=== PATIENT | male | born 1975 | race Caucasian/White ===

== ENCOUNTER 2019-02-27 15:51 | Emergency (ER) | payer BC, OTHER ==
--- NOTE | 2019-02-27 15:59 | ERPHSYRPT ---
- History of Present Illness Time Seen by Provider: 02/27/19 15:59 Source: patient Exam Limitations: no limitations Physician History: 44 y/o right handed white male presents with left elbow pain after using a sledgehammer while at work this afternoon. the handle broke. pt can move it hurts to do so. Occurred: this afternoon Method of Injury: other (swinging a sledgehammer) Quality: aching Severity of Pain-Max: mild Severity of Pain-Current: mild Extremities Pain Location: elbow: left Modifying Factors: Improves With: movement Associated Symptoms: none Allergies/Adverse Reactions: No Known Drug Allergies Allergy (Verified 02/27/19 16:09) Hx Tetanus, Diphtheria Vaccination/Date Given: Yes Hx Influenza Vaccination/Date Given: No Hx Pneumococcal Vaccination/Date Given: No - Review of Systems Constitutional: No Symptoms Eyes: No Symptoms Ears, Nose, & Throat: No Symptoms Respiratory: No Symptoms Cardiac: No Symptoms Abdominal/Gastrointestinal: No Symptoms Genitourinary Symptoms: No Symptoms Musculoskeletal: Joint Pain (left elbow) Skin: No Symptoms Neurological: No Symptoms Psychological: No Symptoms Endocrine: No Symptoms Hematologic/Lymphatic: No Symptoms Immunological/Allergic: No Symptoms All Other Systems: Reviewed and Negative - Past Medical History Pertinent Past Medical History: Yes Neurological History: No Pertinent History ENT History: No Pertinent History Cardiac History: High Cholesterol Respiratory History: No Pertinent History Endocrine Medical History: No Pertinent History Musculoskeletal History: No Pertinent History GI Medical History: No Pertinent History History: No Pertinent History Psycho-Social History: No Pertinent History Male Reproductive Disorders: No Pertinent History - Past Surgical History Past Surgical History: Yes Neuro Surgical History: No Pertinent History Cardiac: No Pertinent History Respiratory: No Pertinent History Gastrointestinal: No Pertinent History Genitourinary: No Pertinent History Musculoskeletal: Orthopedic Surgery - Social History Smoking Status: Never smoker Exposure to second hand smoke: No Drug Use: none Patient Lives Alone: No - Nursing Vital Signs Nursing Vital Signs: Initial Vital Signs Temperature 98.6 F 02/27/19 15:58 Pulse Rate 64 02/27/19 15:58 Respiratory Rate 18 02/27/19 15:58 Blood Pressure 126/89 02/27/19 15:58 O2 Sat by Pulse Oximetry 100 02/27/19 15:58 Pain Scale Pain Intensity 5 - Physical Exam General Appearance: no apparent distress, alert, anxiety Eyes, Ears, Nose, Throat Exam: normal ENT inspection, moist mucous membranes Neck Exam: normal inspection, non-tender, supple, full range of motion Cardiovascular/Respiratory Exam: chest non-tender, regular rate/rhythm Abdominal Exam: non-tender Back Exam: normal inspection, normal range of motion, No CVA tenderness, No vertebral tenderness Shoulder Exam: normal inspection, non-tender, no evidence of injury, normal ROM Elbow/Forearm Exam: normal inspection, no evidence of injury, normal ROM, bone tenderness Wrist Exam: normal inspection, non-tender, no evidence of injury, normal ROM Hand Exam: normal inspection, non-tender, no evidence of injury, normal ROM Neuro/Tendon Exam: normal sensation, normal motor functions, normal tendon functions, responds to pain Mental Status Exam: alert, oriented x 3, cooperative Skin Exam: normal color, warm, dry SpO2 Interpretation: normal O2 Delivery: Room Air - Course Nursing assessment & vital signs reviewed: Yes Ordered Tests: Active Orders 24 hr Category Date Time Status ELBOW (MINIMUM 3 VIEWS) Stat Exams 02/27/19 16:30 Completed - Progress Progress Note: 02/27/19 17:29 xray left elbow-no acute fx or dislocation Counseled pt/family regarding: diagnosis, need for follow-up, rad results - Departure Departure Disposition: Home Clinical Impression: Strain of left elbow Condition: Stable Critical Care Time: No Referrals: DOCTOR,NO FAMILY [Primary Care Provider] - Additional Instructions: ice pack to left elbow 3 times daily for 2 days. take medications as prescribed. minimize excessive use of left elbow for next 48 hours. follow up with primary doctor for persistent symptoms. Prescriptions: Cyclobenzaprine HCl 10 mg [Cyclobenzaprine 10 MG] 10 mg PO TID #10 tablet Prednisone 10 mg [Deltasone 10 mg] 10 mg PO TID #6 tablet
[2019-02-27 16:08] VITALS: BP 126/89; PULSE 64; O2SAT 100
--- NOTE | 2019-02-27 17:14 | XRAY ---
Indication: Pain following injury. Comparison: None 3 views of the left elbow demonstrates tiny olecranon process spurring. No other bony, articular, or soft tissue abnormalities.
[2019-02-27] MEDS ORDERED: Cyclobenzaprine 10 MG PO ONE (17:28)
[2019-02-27] MEDS ORDERED: DELTASONE 20 MG ONE (17:37)
[2019-02-27] MEDS ORDERED: Cyclobenzaprine 10 MG ONE (17:37)
[2019-02-28] MEDS ORDERED: DELTASONE 20 MG PO ONE (17:27)
== END 2019-02-27 17:51 | disposition home or self-care (01) ==
LOC: ED 15:51
DX: S53.402A Unspecified sprain of left elbow, initial encounter (principal); X50.0XXA Overexertion from strenuous movement or load, initial encounter; Y93.H3 Activity, building and construction
CPT/HCPCS: 73080; 99284; A9270-GY

== ENCOUNTER 2020-01-02 07:51 | Emergency (ER) | payer OTHER, BC ==
[2020-01-02 08:03] VITALS: BP 147/116; PULSE 92; O2SAT 99
[2020-01-02] MEDS ORDERED: Adacel Vial IM ONE ×2 (08:17→08:40)
--- NOTE | 2020-01-02 08:34 | ERPHSYRPT ---
- History of Present Illness Time Seen by Provider: 01/02/20 07:53 Source: patient Exam Limitations: no limitations Patient Subjective Stated Complaint: pt here for laceration to left index finger, pt was pulling out a knife and cut finger Triage Nursing Assessment: pt walked in , alert, resp easy, face mask in place, has laceration to left index finger, has bleeding, pressure and surgicel applied Physician History: This's a 45 yr old pt. presenting to the ED with c/o laceration to left index finger occured 10 min ago - states he was pulling his knife out of it's sheath when he accidentally cut his finger. - is not on blood thinners. - denies any other injuries - denies tingling/numbness Timing/Duration: today Occured at: home Context: other Quality: other Severity of Pain-Max: mild Severity of Pain-Current: mild Allergies/Adverse Reactions: No Known Drug Allergies Allergy (Verified 01/02/20 08:00) Home Medications: No Reportable Medications [No Reported Medications] 01/02/20 [History] Hx Tetanus, Diphtheria Vaccination/Date Given: No Hx Influenza Vaccination/Date Given: No Hx Pneumococcal Vaccination/Date Given: No Immunizations Up to Date: Yes Travel Risk - International Travel Have you traveled outside of the country in past 3 weeks: No - Coronavirus Screening Are you exhibiting any of the following symptoms?: No Close contact with a COVID-19 positive Pt in past 14-21 Days: No - Review of Systems Constitutional: No Symptoms Eyes: No Symptoms Ears, Nose, & Throat: No Symptoms Respiratory: No Symptoms Cardiac: No Symptoms Abdominal/Gastrointestinal: No Symptoms Skin: No Symptoms Neurological: No Symptoms Hematologic/Lymphatic: No Symptoms All Other Systems: Reviewed and Negative - Past Medical History Pertinent Past Medical History: Yes Neurological History: No Pertinent History ENT History: No Pertinent History Cardiac History: High Cholesterol Respiratory History: No Pertinent History Endocrine Medical History: No Pertinent History Musculoskeletal History: No Pertinent History GI Medical History: No Pertinent History History: No Pertinent History Psycho-Social History: No Pertinent History Male Reproductive Disorders: No Pertinent History - Past Surgical History Past Surgical History: Yes Neuro Surgical History: No Pertinent History Cardiac: No Pertinent History Respiratory: No Pertinent History Gastrointestinal: No Pertinent History Genitourinary: No Pertinent History Musculoskeletal: Orthopedic Surgery - Social History Smoking Status: Never smoker Exposure to second hand smoke: No Drug Use: none Patient Lives Alone: No - Nursing Vital Signs Nursing Vital Signs: Initial Vital Signs Temperature 97.4 F 01/02/20 08:03 Pulse Rate 92 H 01/02/20 08:03 Respiratory Rate 18 01/02/20 08:03 Blood Pressure 147/116 01/02/20 08:03 O2 Sat by Pulse Oximetry 99 01/02/20 08:03 Pain Scale Pain Intensity 6 - Physical Exam General Appearance: no apparent distress Eye Exam: PERRL/EOMI, eyes nml inspection Ears, Nose, Throat Exam: normal ENT inspection, TMs normal Neck Exam: normal inspection, non-tender, supple, full range of motion Respiratory Exam: normal breath sounds, lungs clear Cardiovascular Exam: regular rate/rhythm, normal heart sounds Gastrointestinal Exam: soft, normal bowel sounds Extremity Exam: normal range of motion, lacerations, swelling, tenderness, No deformities, No inflammation Peripheral Pulses: carotid (R): 4+, carotid (L): 4+ Neurologic Exam: alert, oriented x 3, cooperative Skin Exam: normal color SpO2 Interpretation: normal SpO2: 99 O2 Delivery: Room Air Procedures - Laceration/Wound Repair Left Finger Wound Location: Left Wound Length (cm): 3.5 Wound's Depth, Shape: superficial Wound Explored: in bloodless field Irrigated: Yes Hibiclens Prep: Yes Anesthesia: local, 1% Lidocaine Volume Anesthetic (ccs): 7 Wound Repaired With: sutures Suture Size/Type: 4-0, vicryl Number of Sutures: 6 Layer Closure?: No Sterile Dressing Applied?: Yes Splint Applied?: Yes Sling Applied?: No Ordered Tests: Medication Summary Discontinued Medications Generic Name Dose Route Start Last Admin Trade Name Marga PRN Reason Stop Dose Admin Diphtheria/Tetanus/Acell Pertussis Confirm 01/02/20 08:17 Adacel Vial Administered 01/02/20 08:18 Dose 0.5 ml IM .STK-MED ONE - Progress Progress: improved Progress Note: 01/02/20 08:35 this's a 45 yr old pt. with a 3.5 cm laceration to pulp of left index finger- currently bleeding, surgicel applies - consent obtained and laceration repaired in normal fashion with good hemostasis - tdap given - wound care precautions discussed - d/c home with f/u wth PCP in 2-3 days for wound check and in 7 days for suture removal. Counseled pt/family regarding: need for follow-up - Departure Departure Disposition: Home Clinical Impression: Laceration of finger Condition: Stable Critical Care Time: No Referrals: DOCTOR,NO FAMILY [Primary Care Provider] - Additional Instructions: Discharge/Care Plan BARRY WELCH was seen on 01/02/20 in the Emergency Room. The patient was counseled regarding Diagnosis,Lab results, Imaging studies, need for follow up and when to return to the Emergency Room. Prescriptions given: Discharge Note I have spoken with the patient and/or caregivers. I have explained the patient's condition, diagnosis and treatment plan based on the information available to me at this time. I have answered the patient's and/or caregiver's questions and addressed any concerns. The patient and/or caregivers have as good understanding of the patient's diagnosis, condition and treatment plan as can be expected at this point. The vital signs have been stable. The patient's condition is stable and appropriate for discharge from the emergency department. The patient will pursue further outpatient evaluation with the primary care physician or other designated or consulting physician as outlined in the discharge instructions. The patient and/or caregivers are agreeable to this plan of care and follow-up instructions have been explained in detail. The patient and/or caregivers have received these instruction. The patient/and or caregivers are aware that any significant change in condition or worsening of symptoms should prompt an immediate return to this or the closest emergency department or call 911.
== END 2020-01-02 09:00 | disposition home or self-care (01) ==
LOC: ED 07:51
DX: S61.211A Laceration without foreign body of left index finger without damage to nail, initial encounter (principal)
CPT/HCPCS: 12002; 90471; 90715; 99283